=== PATIENT | female | born 1930 | race Two or more races ===

== ENCOUNTER → 2019-10-16 | Outpatient (CLI) | payer MEDICARE, OTHER ==
[~2019-10-16] MED LIST: OMNIPAQUE 350 MG/ML, 75ML BOTTLE ONE
== END | disposition home or self-care (01) ==
LOC: RAD 16:02
PROVIDERS: ATTEND Family Medicine
DX: J43.2 Centrilobular emphysema (principal); J84.10 Pulmonary fibrosis, unspecified; J98.4 Other disorders of lung; R91.8 Other nonspecific abnormal finding of lung field; M43.8X4 Other specified deforming dorsopathies, thoracic region
CPT/HCPCS: 71260; Q9967

== ENCOUNTER 2019-10-25 06:16 | Day surgery (SDC) | payer MEDICARE, OTHER ==
[~2019-10-25] VITALS: Ht 149.9 cm; Wt 40.7 kg
[2019-10-25] MEDS ORDERED: SODIUM CHLORIDE 0.9% 1,000 ML IV SCH (06:39)
[2019-10-25 07:22] VITALS: BP 118/45
[2019-10-25] MEDS ORDERED: FENTANYL PF 100 MCG/2ML ONE (08:03)
[2019-10-25] MEDS ORDERED: MIDAZOLAM 1 MG/ML, 5ML ONE (08:03)
[2019-10-25] MEDS ORDERED: NALOXONE 1 MG/ML, 2ML ONE (08:04)
[2019-10-25] MEDS ORDERED: FLUMAZENIL 0.1 MG/1 ML, 5ML ONE (08:04)
== END 2019-10-25 10:55 | disposition home or self-care (01) ==
LOC: OUT 06:16
PROVIDERS: ATTEND Family Medicine
DX: R91.8 Other nonspecific abnormal finding of lung field (principal); C34.91 Malignant neoplasm of unspecified part of right bronchus or lung; J44.9 Chronic obstructive pulmonary disease, unspecified; N18.9 Chronic kidney disease, unspecified; Z86.73 Personal history of transient ischemic attack (TIA), and cerebral infarction without residual deficits
CPT/HCPCS: 32405; 77012; 88305; 88333; 88341; 88342; 99156; 99157; J2250; J3010; J7030; J2310